=== PATIENT | female | born 1950 | race Caucasian/White ===

== ENCOUNTER 2017-12-31 07:54 | Inpatient (IN) | payer MEDICARE ==
[2017-12-28 12:22] LABS: INTERNATIONAL NORMALIZED RATIO 2.46 (0.93-1.1); PROTHROMBIN TIME 25.1 Seconds (9.6-11.5)
[2017-12-28 12:29] LABS: BASOPHILS # (AUTO) 0.05 x10^3/uL (0-0.1); BASOPHILS % (AUTO) 1 % (0-1); EOSINOPHILS # (AUTO) 0.16 x10^3/uL (0-0.4); EOSINOPHILS % (AUTO) 2 % (1-7); LYMPHOCYTES # (AUTO) 2.25 x10^3/uL (1-3.4); LYMPHOCYTES % (AUTO) 28 % (22-44); MD NO; MEAN CORPUSCULAR HEMOGLOBIN 29.5 pg (27.0-34.8); MEAN CORPUSCULAR HGB CONC 32.8 g/dL (32.4-35.8); MEAN CORPUSCULAR VOLUME 89.7 fL (80-100); MEAN PLATELET VOLUME 7.5 fL (7.4-10.4); MONOCYTES # (AUTO) 0.68 x10^3/uL (0.2-0.8); MONOCYTES % (AUTO) 8 % (2-9); NEUTROPHILS # (AUTO) 5.05 x10^3/uL (1.8-6.8); NEUTROPHILS % (AUTO) 62 % (42-75); PLATELET COUNT 280 x10^3/uL (130-400); RED BLOOD COUNT 4.15 x10^6/uL (3.82-5.3); RED CELL DISTRIBUTION WIDTH 16.2 % (9.6-15.2)
[2017-12-28 12:31] LABS: ALBUMIN 2.6 g/dL (3.4-5.0); ANION GAP 7 mmol/L (5-15); CALCIUM 8.6 mg/dL (8.5-10.1); CHLORIDE 104 mmol/L (98-107)
[2017-12-28 12:35] LABS: ALANINE AMINOTRANSFERASE 15 U/L (12-78); ALKALINE PHOSPHATASE 106 U/L (45-117); BILIRUBIN,TOTAL 0.2 mg/dL (0.2-1.0); TOTAL PROTEIN 7.1 g/dL (6.4-8.2)
[~2017-12-31] VITALS: Ht 170.2 cm; Wt 99.6 kg
[~2017-12-31 07:54] MED LIST: CYAN25003 PO; ENOX150S5 SQ; FURO-92 PO; HYDR-3241 PO; IRON1TAB60 PO; MAGN250T9 PO; MAGN300C PO; METF10002 PO; METF500T4 PO; MV-M1TAB16 PO; OMEG1CAP6 PO; OMEP-110 PO; POTA10TA31 PO; POTA20TA91 PO; SIMV40TA3 PO; WARF2.5T73 PO; WARF7.5T46 PO
[2017-12-31] MEDS ORDERED: HEPARIN 1,000 UNITS/ML, 10ML ONE (08:09)
[2017-12-31] MEDS ORDERED: ISOSULFAN BLUE 10 MG/ML, 5ML IV ONE (08:24)
[2017-12-31 09:07] VITALS: BP 121/81
[2017-12-31] MEDS: LACTATED RINGERS 1,000 ML IV SCH ×2 (09:35→11:03)
[2017-12-31 10:30] LABS: INTERNATIONAL NORMALIZED RATIO 1.23 (0.93-1.1); PROTHROMBIN TIME 12.7 Seconds (9.6-11.5)
[2017-12-31] MEDS ORDERED: MIDAZOLAM 1 MG/ML, 2ML ONE (10:48)
[2017-12-31] MEDS ORDERED: FENTANYL PF 250 MCG/5ML ONE ×2 (10:48→12:03)
[2017-12-31] MEDS ORDERED: ONDANSETRON ODT 8 MG PO ONE (11:00)
[2017-12-31] MEDS ORDERED: ACETAMINOPHEN 500 MG TABLET PO ONE (11:00)
[2017-12-31] MEDS ORDERED: OXYcodone IR 5MG TABLET PO ONE (11:00)
[2017-12-31] MEDS ORDERED: CEFAZOLIN 1,000 MG ONE (11:18)
[2017-12-31] MEDS ORDERED: PROPOFOL 10 MG/ML, 20ML ONE (11:18)
[2017-12-31] MEDS ORDERED: ROCURONIUM 10 MG/ML,10ML ONE (11:18)
[2017-12-31] MEDS ORDERED: EPHEDRINE 50 MG/ML, 1ML ONE (11:18)
[2017-12-31] MEDS ORDERED: DEXAMETHASONE 4 MG/ML, 5ML ONE (11:18)
[2017-12-31] MEDS ORDERED: NEOSTIGMINE 1 MG/ML, 10ML ONE (11:18)
[2017-12-31] MEDS ORDERED: GLYCOPYRROLATE 0.2MG/1ML, 5ML ONE (11:18)
[2017-12-31] MEDS ORDERED: HYDROmorphone 1 MG/ML, 1ML IV PRN (11:30)
[2017-12-31] MEDS ORDERED: MEPERIDINE/PF 25MG/0.5ML IVPush PRN (11:30)
[2017-12-31] MEDS ORDERED: PROMETHAZINE 25 MG/ML, 1ML IV PRN (11:30)
[2017-12-31] MEDS ORDERED: OXYcodone 5 MG/5 ML ORAL.SOL UDC PO PRN (11:30)
[2017-12-31] MEDS ORDERED: LABETALOL 5MG/ML, 20ML IV PRN (11:30)
[2017-12-31] MEDS ORDERED: HYDROmorphone 2 MG/ML, 1ML ONE ×3 (12:03→16:14)
[2017-12-31] MEDS ORDERED: FLU VACC QS2017-18 (36MOS+) UP/PF 0.5 ML IM-VACC ONE (14:30)
[2017-12-31] MEDS ORDERED: DIPHTHERIA-TETANUS ADULT 0.5ML IM-VACC ONE (14:30)
[2017-12-31] MEDS ORDERED: FLU VACCINE PER PHARMACY IM ONE (14:30)
[2017-12-31] MEDS ORDERED: MENING VAC A,C,Y,W-135 DIP/PF (MENACTRA AGES 2-55) 0.5 ML IM-VACC ONE (14:30)
[2017-12-31] MEDS ORDERED: PNEUMOC 13-VALENT VACC, 0.5 ML IM-VACC ONE (14:30)
[2017-12-31] MEDS ORDERED: HAEMOPH B POLY CONJ-TET TOX/PF 10 MCG/0.5 ML INJ IM-VACC ONE (14:30)
[2017-12-31] MEDS ORDERED: MENING VAC A,C,Y,W-135/PF 0.5 ML SQ-VACC ONE (15:00)
[2017-12-31] MEDS ORDERED: FENTANYL PF 100 MCG/2ML ONE ×2 (15:34→16:14)
[2017-12-31] MEDS ORDERED: ALBUMIN HUMAN 25% 50 ML IV ONE (17:30)
[2017-12-31] MEDS ORDERED: ALBUMIN HUMAN 25% 50 ML ONE (17:32)
[2017-12-31 18:04] LABS: ALANINE AMINOTRANSFERASE 210 U/L (12-78); ALBUMIN 2.2 g/dL (3.4-5.0); ANION GAP 15 mmol/L (5-15); CALCIUM 7.4 mg/dL (8.5-10.1); CHLORIDE 106 mmol/L (98-107); CREATININE 1.41 mg/dL (0.55-1.02)
[2017-12-31 18:06] LABS: ALKALINE PHOSPHATASE 91 U/L (45-117); BILIRUBIN,TOTAL 0.5 mg/dL (0.2-1.0); TOTAL PROTEIN 4.8 g/dL (6.4-8.2)
[2017-12-31] MEDS ORDERED: ALBUMIN HUMAN 25% 100 ML IV ONE (18:30)
[2017-12-31] MEDS ORDERED: KETOROLAC 30 MG/1 ML IVPush ONE (19:00)
[2017-12-31] MEDS ORDERED: LACTATED RINGERS 1,000 ML IVBOLUS ONE ×2 (19:30)
[2017-12-31] MEDS: FENTANYL PF 100 MCG/2ML IV PRN ×2 (19:45→19:55)
[2017-12-31] MEDS ORDERED: ACETAMINOPHEN 650 MG SUPP PR PRN (22:30)
[2017-12-31] MEDS ORDERED: DIPHENHYDRAMINE 50 MG/ML, 1ML IV PRN (22:30)
[2017-12-31] MEDS: FAMOTIDINE 20 MG/2 ML IV SCH (23:23)
[2017-12-31] MEDS: POTASSIUM CHLORIDE 20 MEQ in D5%-0.45% NACL 1,000 ML IV SCH (23:23)
[2017-12-31] MEDS: IV KETOROLAC 30 MG/ML, 1ML IV SCH (23:23)
[2018-01-01] MEDS: POTASSIUM CHLORIDE 20 MEQ in D5%-0.45% NACL 1,000 ML IV SCH ×2 (03:39→08:36)
[2018-01-01 04:00] VITALS: BP 101/51
[2018-01-01 04:54] LABS: MEAN CORPUSCULAR HEMOGLOBIN 29.9 pg (27.0-34.8); MEAN CORPUSCULAR HGB CONC 33.5 g/dL (32.4-35.8); MEAN CORPUSCULAR VOLUME 89.3 fL (80-100); MEAN PLATELET VOLUME 8.1 fL (7.4-10.4); PLATELET COUNT 200 x10^3/uL (130-400); RED BLOOD COUNT 2.83 x10^6/uL (3.82-5.3)
[2018-01-01 05:01] LABS: ALBUMIN 2.4 g/dL (3.4-5.0); ANION GAP 13 mmol/L (5-15); CALCIUM 7.3 mg/dL (8.5-10.1); CHLORIDE 106 mmol/L (98-107); CREATININE 1.95 mg/dL (0.55-1.02)
[2018-01-01 05:42] LABS: MD YES
[2018-01-01 05:44] LABS: BAND#(MANUAL) 5.22 x10^3/uL; BANDS%(MANUAL) 23 % (0-7); LYMPH#(MANUAL) 1.14 x10^3/uL (1-3.4); LYMPHS% (MANUAL) 5 % (22-44); METAMYELOCYTES# (MANUAL) 0.23 x10^3/uL (0-0); METAMYELOCYTES% (MANUAL) 1 % (0-1); MONOS#(MANUAL) 1.59 x10^3/uL (0.3-2.7); MONOS% (MANUAL) 7 % (2-9); SEG#(MANUAL) 14.53 x10^3/uL (1.8-6.8); SEGS% (MANUAL) 64 % (42-75)
[2018-01-01 05:45] LABS: <PLATELET ESTIMATE> ADEQUATE; <PLT MORPHOLOGY> NORMAL PLT MORPH; ANISOCYTOSIS 1+
[2018-01-01] MEDS: IV KETOROLAC 30 MG/ML, 1ML IV SCH ×3 (06:31→22:13)
[2018-01-01] MEDS ORDERED: SODIUM CHLORIDE 0.9% 1,000ML IVBOLUS ONE (08:30)
[2018-01-01] MEDS: SODIUM CHLORIDE 0.9% 1,000ML IVBOLUS PRN ×2 (09:36→16:51)
[2018-01-01] MEDS: SODIUM CHLORIDE 0.45% 1,000 ML IV SCH ×3 (09:37→22:40)
[2018-01-01] MEDS: FAMOTIDINE 20 MG/2 ML IV SCH (12:39)
[2018-01-01] MEDS: ALBUMIN HUMAN 5% 500 ML IV SCH ×2 (12:40→22:39)
[2018-01-01] MEDS ORDERED: HEPARIN 5,000 UNITS/ML, 1ML IV ONE (13:00)
[2018-01-01] MEDS ORDERED: HEPARIN 25,000 UNITS/500ML PMX 500 ML IV PRN (13:00)
[2018-01-01] MEDS ORDERED: ENOXAPARIN 30 MG/0.3 ML SQ SCH (16:00)
[2018-01-01] MEDS ORDERED: ENOXAPARIN 40 MG/0.4 ML SQ SCH (16:00)
[2018-01-01] MEDS: INSULIN LISPRO 100 UNITS/ML, PEN SQ-INSULIN SCH ×2 (16:51→20:55)
[2018-01-01] MEDS ORDERED: SODIUM CHLORIDE 0.9% 1,000ML IVBOLUS PRN (17:30)
[2018-01-01] MEDS ORDERED: FUROSEMIDE 20 MG/2 ML IV ONE (17:30)
[2018-01-02] VITALS (10 sets, daily range): BP systolic 117–156; BP diastolic 46–74
[2018-01-02] MEDS: SODIUM CHLORIDE 0.45% 1,000 ML IV SCH ×3 (05:46→14:43)
[2018-01-02] MEDS: IV KETOROLAC 30 MG/ML, 1ML IV SCH ×3 (05:47→21:47)
[2018-01-02 06:10] LABS: ANION GAP 9 mmol/L (5-15); CALCIUM 7.7 mg/dL (8.5-10.1); CHLORIDE 109 mmol/L (98-107); CREATININE 1.73 mg/dL (0.55-1.02)
[2018-01-02] MEDS: INSULIN LISPRO 100 UNITS/ML, PEN SQ-INSULIN SCH ×4 (06:38→20:19)
[2018-01-02 06:55] LABS: MEAN CORPUSCULAR HGB CONC 33.7 g/dL (32.4-35.8); MEAN PLATELET VOLUME 8.7 fL (7.4-10.4); PLATELET COUNT 195 x10^3/uL (130-400); RED BLOOD COUNT 1.93 x10^6/uL (3.82-5.3)
[2018-01-02 07:15] LABS: MD YES
[2018-01-02 07:16] LABS: BAND#(MANUAL) 3.14 x10^3/uL; BANDS%(MANUAL) 16 % (0-7); EOS#(MANUAL) 0.39 x10^3/uL (0.0-0.4); EOS% (MANUAL) 2 % (1-7); LYMPH#(MANUAL) 0.98 x10^3/uL (1-3.4); LYMPHS% (MANUAL) 5 % (22-44); MONOS#(MANUAL) 0.78 x10^3/uL (0.3-2.7); MONOS% (MANUAL) 4 % (2-9); NRBC % (MANUAL) 1 % (0-1); SEG#(MANUAL) 14.31 x10^3/uL (1.8-6.8); SEGS% (MANUAL) 73 % (42-75)
[2018-01-02 07:17] LABS: ANISOCYTOSIS 1+; BASOPHILLIC STIPPLING 1+
[2018-01-02 07:18] LABS: <PLATELET ESTIMATE> ADEQUATE; <PLT MORPHOLOGY> NORMAL PLT MORPH
[2018-01-02] MEDS: FAMOTIDINE 20 MG/2 ML IV SCH (08:09)
[2018-01-02] MEDS: ALBUMIN HUMAN 5% 500 ML IV SCH ×2 (08:38→20:19)
[2018-01-02 10:48] LABS: MEAN CORPUSCULAR HEMOGLOBIN 31.4 pg (27.0-34.8); MEAN CORPUSCULAR VOLUME 89.8 fL (80-100); MEAN PLATELET VOLUME 8.8 fL (7.4-10.4); PLATELET COUNT 198 x10^3/uL (130-400); RED BLOOD COUNT 1.77 x10^6/uL (3.82-5.3); RED CELL DISTRIBUTION WIDTH 16.4 % (9.6-15.2)
[2018-01-02 11:01] LABS: MD YES
[2018-01-02 11:03] LABS: BAND#(MANUAL) 2.27 x10^3/uL; BANDS%(MANUAL) 12 % (0-7); LYMPH#(MANUAL) 1.13 x10^3/uL (1-3.4); LYMPHS% (MANUAL) 6 % (22-44); MONOS#(MANUAL) 0.95 x10^3/uL (0.3-2.7); MONOS% (MANUAL) 5 % (2-9); NRBC % (MANUAL) 1 % (0-1)
[2018-01-02 11:04] LABS: <PLATELET ESTIMATE> ADEQUATE; <PLT MORPHOLOGY> NORMAL PLT MORPH; ANISOCYTOSIS 1+; EOS#(MANUAL) 0.76 x10^3/uL (0.0-0.4); EOS% (MANUAL) 4 % (1-7); SEGS% (MANUAL) 73 % (42-75)
[2018-01-02 11:05] LABS: BASOPHILLIC STIPPLING 1+
[2018-01-02] MEDS ORDERED: HEPARIN 25,000 UNITS/500ML PMX 500 ML IV PRN (13:00)
[2018-01-02] MEDS ORDERED: FUROSEMIDE 20 MG/2 ML ONE (19:31)
[2018-01-02] MEDS: FUROSEMIDE 20 MG/2 ML IV SCH (19:40)
[2018-01-03] MEDS: SODIUM CHLORIDE 0.45% 1,000 ML IV SCH ×3 (00:48→21:55)
[2018-01-03] MEDS: ALBUMIN HUMAN 5% 500 ML IV SCH ×2 (02:37→15:28)
[2018-01-03] MEDS: MORPHINE SULFATE 4 MG/ML, 1ML IVPush PRN ×2 (02:50→14:47)
[2018-01-03 04:00] VITALS: BP 137/59
[2018-01-03 05:21] LABS: ALANINE AMINOTRANSFERASE 40 U/L (12-78); ALBUMIN 2.7 g/dL (3.4-5.0); ANION GAP 9 mmol/L (5-15); CALCIUM 7.9 mg/dL (8.5-10.1); CHLORIDE 106 mmol/L (98-107)
[2018-01-03 05:23] LABS: ALKALINE PHOSPHATASE 76 U/L (45-117); BILIRUBIN,TOTAL 0.6 mg/dL (0.2-1.0); TOTAL PROTEIN 5.2 g/dL (6.4-8.2)
[2018-01-03 05:25] LABS: MEAN CORPUSCULAR HEMOGLOBIN 29.9 pg (27.0-34.8); MEAN CORPUSCULAR HGB CONC 33.9 g/dL (32.4-35.8); MEAN CORPUSCULAR VOLUME 88.1 fL (80-100); MEAN PLATELET VOLUME 8.4 fL (7.4-10.4); PLATELET COUNT 194 x10^3/uL (130-400); RED BLOOD COUNT 2.26 x10^6/uL (3.82-5.3); RED CELL DISTRIBUTION WIDTH 15.6 % (9.6-15.2)
[2018-01-03 05:47] LABS: MD YES
[2018-01-03 05:48] LABS: BAND#(MANUAL) 1.02 x10^3/uL; BANDS%(MANUAL) 6 % (0-7); EOS#(MANUAL) 0.51 x10^3/uL (0.0-0.4); EOS% (MANUAL) 3 % (1-7); LYMPHS% (MANUAL) 10 % (22-44); MONOS#(MANUAL) 1.19 x10^3/uL (0.3-2.7); MONOS% (MANUAL) 7 % (2-9); NRBC % (MANUAL) 4 % (0-1); SEG#(MANUAL) 12.58 x10^3/uL (1.8-6.8); SEGS% (MANUAL) 74 % (42-75)
[2018-01-03 05:49] LABS: ANISOCYTOSIS 1+; POLYCHROMASIA 1+
[2018-01-03 05:51] LABS: <PLATELET ESTIMATE> ADEQUATE; <PLT MORPHOLOGY> NORMAL PLT MORPH
[2018-01-03] MEDS: IV KETOROLAC 30 MG/ML, 1ML IV SCH ×3 (06:30→21:45)
[2018-01-03] MEDS: INSULIN LISPRO 100 UNITS/ML, PEN SQ-INSULIN SCH ×4 (06:51→21:00)
[2018-01-03] MEDS: FAMOTIDINE 20 MG/2 ML IV SCH ×2 (09:59→21:45)
[2018-01-03] MEDS: FUROSEMIDE 20 MG/2 ML IV SCH ×2 (09:59→21:54)
[2018-01-03 12:15] VITALS: BP 155/84
[2018-01-03] MEDS ORDERED: HEPARIN 25,000 UNITS/500ML PMX 500 ML IV PRN (13:00)
[2018-01-03] MEDS: HEPARIN 25,000 UNITS/500ML PMX 500 ML IV PRN (14:59)
[2018-01-03 19:50] VITALS: BP 158/83
[2018-01-04] MEDS: ALBUMIN HUMAN 5% 500 ML IV SCH (03:57)
[2018-01-04] MEDS: HEPARIN 25,000 UNITS/500ML PMX 500 ML IV PRN (04:05)
[2018-01-04 04:16] VITALS: BP 156/77
[2018-01-04 05:53] LABS: RED BLOOD COUNT 2.58 x10^6/uL (3.82-5.3)
[2018-01-04 05:54] LABS: MEAN CORPUSCULAR HEMOGLOBIN 29.9 pg (27.0-34.8); MEAN CORPUSCULAR HGB CONC 33.8 g/dL (32.4-35.8); MEAN CORPUSCULAR VOLUME 88.7 fL (80-100); MEAN PLATELET VOLUME 8.6 fL (7.4-10.4); PLATELET COUNT 256 x10^3/uL (130-400); RED CELL DISTRIBUTION WIDTH 15.8 % (9.6-15.2)
[2018-01-04 06:04] LABS: CHLORIDE 107 mmol/L (98-107)
[2018-01-04] MEDS: IV KETOROLAC 30 MG/ML, 1ML IV SCH ×3 (06:15→22:22)
[2018-01-04 06:16] LABS: ALANINE AMINOTRANSFERASE 29 U/L (12-78); ALBUMIN 2.6 g/dL (3.4-5.0); ALKALINE PHOSPHATASE 75 U/L (45-117); ANION GAP 11 mmol/L (5-15); BILIRUBIN,TOTAL 0.9 mg/dL (0.2-1.0); CALCIUM 8.9 mg/dL (8.5-10.1); CREATININE 0.77 mg/dL (0.55-1.02); TOTAL PROTEIN 5.5 g/dL (6.4-8.2)
[2018-01-04 06:19] LABS: MD YES
[2018-01-04 06:21] LABS: BAND#(MANUAL) 0.33 x10^3/uL; BANDS%(MANUAL) 2 % (0-7); EOS#(MANUAL) 0.33 x10^3/uL (0.0-0.4); EOS% (MANUAL) 2 % (1-7); LYMPH#(MANUAL) 0.66 x10^3/uL (1-3.4); LYMPHS% (MANUAL) 4 % (22-44); MONOS#(MANUAL) 1.16 x10^3/uL (0.3-2.7); MONOS% (MANUAL) 7 % (2-9); SEG#(MANUAL) 14.11 x10^3/uL (1.8-6.8); SEGS% (MANUAL) 85 % (42-75)
[2018-01-04 06:22] LABS: NRBC % (MANUAL) 1 % (0-1)
[2018-01-04 06:23] LABS: <PLATELET ESTIMATE> ADEQUATE; <PLT MORPHOLOGY> NORMAL PLT MORPH; ANISOCYTOSIS 1+; POLYCHROMASIA 1+
[2018-01-04 07:30] VITALS: BP 136/73
[2018-01-04] MEDS: INSULIN LISPRO 100 UNITS/ML, PEN SQ-INSULIN SCH ×4 (08:02→20:08)
[2018-01-04] MEDS: SODIUM CHLORIDE 0.45% 1,000 ML IV SCH ×2 (08:31→16:35)
[2018-01-04] MEDS: FAMOTIDINE 20 MG/2 ML IV SCH ×2 (08:31→20:03)
[2018-01-04] MEDS ORDERED: POTASSIUM CHLORIDE 40 MEQ in SODIUM CHLORIDE 0.9% 500 ML IV ONE (11:00)
[2018-01-04 12:25] VITALS: BP 136/78
[2018-01-04] MEDS ORDERED: HEPARIN 25,000 UNITS/500ML PMX 500 ML IV PRN (13:00)
[2018-01-04 14:59] VITALS: BP 132/80
[2018-01-04] MEDS ORDERED: HEPARIN 5,000 UNITS/ML, 1ML IVPush ONE ×2 (16:30→22:30)
[2018-01-04 18:49] VITALS: BP 134/81
[2018-01-04] MEDS ORDERED: HEPARIN 5,000 UNITS/ML, 1ML ONE (21:59)
[2018-01-05 00:04] VITALS: BP 145/78
[2018-01-05] MEDS: SODIUM CHLORIDE 0.45% 1,000 ML IV SCH ×3 (02:57→22:41)
[2018-01-05] MEDS: IV KETOROLAC 30 MG/ML, 1ML IV SCH ×2 (05:36→15:11)
[2018-01-05 06:13] LABS: ALBUMIN 2.4 g/dL (3.4-5.0); ANION GAP 8 mmol/L (5-15); CALCIUM 8.3 mg/dL (8.5-10.1); CHLORIDE 106 mmol/L (98-107); MEAN CORPUSCULAR HEMOGLOBIN 29.1 pg (27.0-34.8); MEAN CORPUSCULAR HGB CONC 33.4 g/dL (32.4-35.8); MEAN CORPUSCULAR VOLUME 87.2 fL (80-100); MEAN PLATELET VOLUME 8.4 fL (7.4-10.4); PLATELET COUNT 311 x10^3/uL (130-400); RED BLOOD COUNT 2.73 x10^6/uL (3.82-5.3); RED CELL DISTRIBUTION WIDTH 15.8 % (9.6-15.2)
[2018-01-05 06:18] LABS: ALANINE AMINOTRANSFERASE 23 U/L (12-78); ALKALINE PHOSPHATASE 102 U/L (45-117); BILIRUBIN,TOTAL 0.8 mg/dL (0.2-1.0); CREATININE 0.76 mg/dL (0.55-1.02); TOTAL PROTEIN 5.4 g/dL (6.4-8.2)
[2018-01-05 06:53] VITALS: BP 129/79
[2018-01-05 06:54] LABS: MD YES
[2018-01-05 06:59] LABS: BAND#(MANUAL) 1.08 x10^3/uL; BANDS%(MANUAL) 7 % (0-7); EOS#(MANUAL) 1.08 x10^3/uL (0.0-0.4); EOS% (MANUAL) 7 % (1-7); LYMPH#(MANUAL) 1.85 x10^3/uL (1-3.4); LYMPHS% (MANUAL) 12 % (22-44); MONOS#(MANUAL) 2.16 x10^3/uL (0.3-2.7); MONOS% (MANUAL) 14 % (2-9); NRBC % (MANUAL) 4 % (0-1); SEG#(MANUAL) 9.24 x10^3/uL (1.8-6.8); SEGS% (MANUAL) 60 % (42-75)
[2018-01-05 07:00] LABS: <PLATELET ESTIMATE> ADEQUATE; ANISOCYTOSIS 1+; POLYCHROMASIA 1+
[2018-01-05] MEDS: INSULIN LISPRO 100 UNITS/ML, PEN SQ-INSULIN SCH ×4 (07:00→20:19)
[2018-01-05 07:01] LABS: <PLT MORPHOLOGY> NORMAL PLT MORPH
[2018-01-05] MEDS: FAMOTIDINE 20 MG/2 ML IV SCH ×2 (07:38→20:12)
[2018-01-05] MEDS: POTASSIUM CHLORIDE 20 MEQ TAB.ER.PRT PO SCH ×2 (09:21→20:11)
[2018-01-05] MEDS ORDERED: HEPARIN 25,000 UNITS/500ML PMX 500 ML IV PRN (13:00)
[2018-01-05 13:07] VITALS: BP 144/76
[2018-01-05 15:14] LABS: INTERNATIONAL NORMALIZED RATIO 1.01 (0.93-1.1); PROTHROMBIN TIME 10.5 Seconds (9.6-11.5)
[2018-01-05] MEDS: HEPARIN 25,000 UNITS/500ML PMX 500 ML IV PRN (17:42)
[2018-01-05] MEDS ORDERED: WARFARIN 5 MG TABLET PO-COUM SCH (18:00)
[2018-01-05 18:40] VITALS: BP 123/72
[2018-01-06 01:03] VITALS: BP 115/71
[2018-01-06] MEDS ORDERED: ACETAMINOPHEN 325 MG TABLET PO PRN (01:30)
[2018-01-06 05:50] LABS: MEAN CORPUSCULAR HEMOGLOBIN 28.8 pg (27.0-34.8); MEAN CORPUSCULAR HGB CONC 32.8 g/dL (32.4-35.8); MEAN CORPUSCULAR VOLUME 87.7 fL (80-100); MEAN PLATELET VOLUME 8.5 fL (7.4-10.4); PLATELET COUNT 351 x10^3/uL (130-400); RED BLOOD COUNT 2.78 x10^6/uL (3.82-5.3); RED CELL DISTRIBUTION WIDTH 15.5 % (9.6-15.2)
[2018-01-06 05:52] LABS: ALBUMIN 2.1 g/dL (3.4-5.0); ANION GAP 8 mmol/L (5-15); CALCIUM 7.7 mg/dL (8.5-10.1); CHLORIDE 107 mmol/L (98-107)
[2018-01-06 05:56] LABS: ALANINE AMINOTRANSFERASE 23 U/L (12-78); ALKALINE PHOSPHATASE 148 U/L (45-117); BILIRUBIN,TOTAL 0.7 mg/dL (0.2-1.0); CREATININE 0.82 mg/dL (0.55-1.02); TOTAL PROTEIN 5.2 g/dL (6.4-8.2)
[2018-01-06 06:12] LABS: INTERNATIONAL NORMALIZED RATIO 1.08 (0.93-1.1); PROTHROMBIN TIME 11.2 Seconds (9.6-11.5)
[2018-01-06 06:13] LABS: MD YES
[2018-01-06 06:15] LABS: BAND#(MANUAL) 0.34 x10^3/uL; BANDS%(MANUAL) 2 % (0-7); EOS#(MANUAL) 0.85 x10^3/uL (0.0-0.4); EOS% (MANUAL) 5 % (1-7); LYMPHS% (MANUAL) 13 % (22-44); MONOS#(MANUAL) 1.86 x10^3/uL (0.3-2.7); MONOS% (MANUAL) 11 % (2-9); NRBC % (MANUAL) 2 % (0-1); SEG#(MANUAL) 11.66 x10^3/uL (1.8-6.8); SEGS% (MANUAL) 69 % (42-75)
[2018-01-06 06:16] LABS: ANISOCYTOSIS 1+; POLYCHROMASIA 1+
[2018-01-06 06:17] LABS: <PLATELET ESTIMATE> ADEQUATE; <PLT MORPHOLOGY> NORMAL PLT MORPH; TARGET CELLS 1+
[2018-01-06] MEDS: INSULIN LISPRO 100 UNITS/ML, PEN SQ-INSULIN SCH ×4 (07:00→20:31)
[2018-01-06 08:14] VITALS: BP 123/65
[2018-01-06] MEDS: HEPARIN 25,000 UNITS/500ML PMX 500 ML IV PRN ×2 (08:19→21:26)
[2018-01-06] MEDS: SODIUM CHLORIDE 0.45% 1,000 ML IV SCH ×2 (08:20→18:14)
[2018-01-06] MEDS: POTASSIUM CHLORIDE 20 MEQ TAB.ER.PRT PO SCH ×2 (08:28→20:29)
[2018-01-06] MEDS: FAMOTIDINE 20 MG/2 ML IV SCH ×2 (08:28→20:29)
[2018-01-06] MEDS: ACETAMINOPHEN 325 MG TABLET PO PRN ×2 (08:35→21:29)
[2018-01-06 11:49] VITALS: BP 148/75
[2018-01-06 14:45] LABS: MICROSCOPIC AUTO
[2018-01-06 14:47] LABS: CULTURE INDICATED? YES
[2018-01-06 14:59] VITALS: BP 161/89
[2018-01-06] MEDS ORDERED: WARFARIN 5 MG TABLET PO-COUM SCH (18:00)
[2018-01-06] MEDS: PIPERACILLIN/TAZO/PMX 3.375GM 50 ML IV SCH ×2 (18:10→23:34)
[2018-01-06 19:04] VITALS: BP 109/72
[2018-01-06] MEDS ORDERED: IBUPROFEN 200 MG TABLET PO PRN (22:00)
[2018-01-07 00:31] VITALS: BP_SYST 91; BP_DIAS 57; BP_DIAS 60
[2018-01-07] MEDS ORDERED: IBUPROFEN 600 MG TABLET ONE (01:07)
[2018-01-07 04:32] LABS: ALBUMIN 1.9 g/dL (3.4-5.0); ANION GAP 10 mmol/L (5-15); CALCIUM 8.1 mg/dL (8.5-10.1); CHLORIDE 103 mmol/L (98-107)
[2018-01-07 04:33] LABS: INTERNATIONAL NORMALIZED RATIO 1.6 (0.93-1.1); PROTHROMBIN TIME 16.5 Seconds (9.6-11.5)
[2018-01-07 04:35] LABS: MEAN CORPUSCULAR HGB CONC 33.1 g/dL (32.4-35.8); MEAN CORPUSCULAR VOLUME 87.7 fL (80-100); MEAN PLATELET VOLUME 9.1 fL (7.4-10.4); PLATELET COUNT 433 x10^3/uL (130-400); RED BLOOD COUNT 2.75 x10^6/uL (3.82-5.3); RED CELL DISTRIBUTION WIDTH 15.7 % (9.6-15.2)
[2018-01-07 04:36] LABS: ALANINE AMINOTRANSFERASE 31 U/L (12-78); ALKALINE PHOSPHATASE 191 U/L (45-117); BILIRUBIN,TOTAL 0.7 mg/dL (0.2-1.0); CREATININE 1.06 mg/dL (0.55-1.02); TOTAL PROTEIN 5.1 g/dL (6.4-8.2)
[2018-01-07] MEDS: PIPERACILLIN/TAZO/PMX 3.375GM 50 ML IV SCH ×4 (05:11→22:55)
[2018-01-07 05:15] LABS: MD YES
[2018-01-07] MEDS: SODIUM CHLORIDE 0.45% 1,000 ML IV SCH ×2 (05:15→16:31)
[2018-01-07 05:31] LABS: BASOS#(MANUAL) 0.28 x10^3/uL (0-0.1); BASOS% (MANUAL) 1 % (0-1); EOS#(MANUAL) 1.93 x10^3/uL (0.0-0.4); EOS% (MANUAL) 7 % (1-7); LYMPH#(MANUAL) 2.76 x10^3/uL (1-3.4); LYMPHS% (MANUAL) 10 % (22-44); MONOS#(MANUAL) 2.48 x10^3/uL (0.3-2.7); MONOS% (MANUAL) 9 % (2-9); SEG#(MANUAL) 20.15 x10^3/uL (1.8-6.8); SEGS% (MANUAL) 73 % (42-75)
[2018-01-07 05:32] LABS: <PLATELET ESTIMATE> ADEQUATE; <PLT MORPHOLOGY> NORMAL PLT MORPH; ANISOCYTOSIS 1+; POLYCHROMASIA 1+; TARGET CELLS 1+
[2018-01-07] MEDS: INSULIN LISPRO 100 UNITS/ML, PEN SQ-INSULIN SCH ×4 (07:00→21:00)
[2018-01-07 07:15] VITALS: BP 124/67
[2018-01-07] MEDS: FAMOTIDINE 20 MG/2 ML IV SCH ×2 (07:44→21:37)
[2018-01-07] MEDS: POTASSIUM CHLORIDE 20 MEQ TAB.ER.PRT PO SCH ×2 (07:45→21:37)
[2018-01-07] MEDS: HEPARIN 25,000 UNITS/500ML PMX 500 ML IV PRN (09:23)
[2018-01-07 12:57] VITALS: BP 106/69
[2018-01-07 17:34] LABS: CLOSTRIDIUM DIFFICILE ANTIGEN POSITIVE; CLOSTRIDIUM DIFFICILE TOXIN NEGATIVE (Negative)
[2018-01-07] MEDS ORDERED: WARFARIN 7.5 MG TABLET PO-COUM ONE (18:00)
[2018-01-07 19:08] VITALS: BP 118/72
[2018-01-07] MEDS: HYDROcodone/APAP 5/325 TABLET PO PRN (21:37)
[2018-01-08] VITALS (10 sets, daily range): BP systolic 108–132; BP diastolic 59–77
[2018-01-08] MEDS: SODIUM CHLORIDE 0.45% 1,000 ML IV SCH ×3 (03:08→23:44)
[2018-01-08] MEDS: HYDROcodone/APAP 5/325 TABLET PO PRN ×3 (03:25→16:33)
[2018-01-08 04:53] LABS: MEAN CORPUSCULAR HEMOGLOBIN 28.8 pg (27.0-34.8); MEAN CORPUSCULAR HGB CONC 32.4 g/dL (32.4-35.8); MEAN CORPUSCULAR VOLUME 88.8 fL (80-100); MEAN PLATELET VOLUME 8.8 fL (7.4-10.4); PLATELET COUNT 443 x10^3/uL (130-400); RED BLOOD COUNT 2.41 x10^6/uL (3.82-5.3); RED CELL DISTRIBUTION WIDTH 16.1 % (9.6-15.2)
[2018-01-08 04:57] LABS: INTERNATIONAL NORMALIZED RATIO 2.09 (0.93-1.1); PROTHROMBIN TIME 21.4 Seconds (9.6-11.5)
[2018-01-08] MEDS: PIPERACILLIN/TAZO/PMX 3.375GM 50 ML IV SCH ×3 (05:05→17:44)
[2018-01-08 05:28] LABS: BASOPHILS % (AUTO) 0 % (0-1); EOSINOPHILS # (AUTO) 1.35 x10^3/uL (0-0.4); EOSINOPHILS % (AUTO) 8 % (1-7); LYMPHOCYTES # (AUTO) 1.42 x10^3/uL (1-3.4); LYMPHOCYTES % (AUTO) 8 % (22-44); MD SCAN; MONOCYTES # (AUTO) 1.57 x10^3/uL (0.2-0.8); MONOCYTES % (AUTO) 9 % (2-9); NEUTROPHILS # (AUTO) 13.24 x10^3/uL (1.8-6.8); NEUTROPHILS % (AUTO) 75 % (42-75)
[2018-01-08 07:24] LABS: BASOPHILS # (AUTO) 0.02 x10^3/uL (0-0.1); BASOPHILS % (AUTO) 0 % (0-1); EOSINOPHILS # (AUTO) 1.27 x10^3/uL (0-0.4); EOSINOPHILS % (AUTO) 8 % (1-7); LYMPHOCYTES # (AUTO) 1.53 x10^3/uL (1-3.4); LYMPHOCYTES % (AUTO) 9 % (22-44); MD NO; MEAN CORPUSCULAR HEMOGLOBIN 28.9 pg (27.0-34.8); MEAN CORPUSCULAR HGB CONC 32.8 g/dL (32.4-35.8); MEAN PLATELET VOLUME 8.7 fL (7.4-10.4); MONOCYTES # (AUTO) 1.66 x10^3/uL (0.2-0.8); MONOCYTES % (AUTO) 10 % (2-9); NEUTROPHILS # (AUTO) 12.61 x10^3/uL (1.8-6.8); NEUTROPHILS % (AUTO) 74 % (42-75); PLATELET COUNT 437 x10^3/uL (130-400); RED BLOOD COUNT 2.35 x10^6/uL (3.82-5.3); RED CELL DISTRIBUTION WIDTH 16.2 % (9.6-15.2)
[2018-01-08] MEDS: INSULIN LISPRO 100 UNITS/ML, PEN SQ-INSULIN SCH ×4 (07:37→21:00)
[2018-01-08] MEDS ORDERED: ACETAMINOPHEN 325 MG TABLET PO SCH (08:00)
[2018-01-08] MEDS ORDERED: DIPHENHYDRAMINE 25 MG CAPSULE PO SCH (08:00)
[2018-01-08] MEDS: FAMOTIDINE 20 MG/2 ML IV SCH ×2 (10:17→21:04)
[2018-01-08] MEDS: POTASSIUM CHLORIDE 20 MEQ TAB.ER.PRT PO SCH ×2 (10:18→21:04)
[2018-01-08] MEDS ORDERED: WARFARIN 5 MG TABLET PO-COUM ONE (18:00)
[2018-01-08] MEDS: IBUPROFEN 200 MG TABLET PO PRN (21:17)
[2018-01-09 01:16] VITALS: BP 127/72
[2018-01-09 04:48] LABS: MEAN CORPUSCULAR HEMOGLOBIN 29.1 pg (27.0-34.8); MEAN CORPUSCULAR HGB CONC 33.1 g/dL (32.4-35.8); MEAN CORPUSCULAR VOLUME 88.1 fL (80-100); MEAN PLATELET VOLUME 8.5 fL (7.4-10.4); PLATELET COUNT 505 x10^3/uL (130-400); RED BLOOD COUNT 3.16 x10^6/uL (3.82-5.3); RED CELL DISTRIBUTION WIDTH 15.4 % (9.6-15.2)
[2018-01-09 04:51] LABS: INTERNATIONAL NORMALIZED RATIO 2.43 (0.93-1.1); PROTHROMBIN TIME 24.8 Seconds (9.6-11.5)
[2018-01-09 04:53] LABS: ALBUMIN 1.7 g/dL (3.4-5.0); ANION GAP 7 mmol/L (5-15); CALCIUM 8.3 mg/dL (8.5-10.1); CHLORIDE 108 mmol/L (98-107)
[2018-01-09 04:57] LABS: ALANINE AMINOTRANSFERASE 17 U/L (12-78); ALKALINE PHOSPHATASE 242 U/L (45-117); BILIRUBIN,TOTAL 0.5 mg/dL (0.2-1.0); CREATININE 0.82 mg/dL (0.55-1.02); TOTAL PROTEIN 5.2 g/dL (6.4-8.2)
[2018-01-09 05:46] LABS: MD YES
[2018-01-09 05:47] LABS: ANISOCYTOSIS 1+; BAND#(MANUAL) 0.39 x10^3/uL; BANDS%(MANUAL) 2 % (0-7); EOS#(MANUAL) 0.79 x10^3/uL (0.0-0.4); EOS% (MANUAL) 4 % (1-7); LYMPH#(MANUAL) 1.97 x10^3/uL (1-3.4); LYMPHS% (MANUAL) 10 % (22-44); MONOS#(MANUAL) 0.99 x10^3/uL (0.3-2.7); MONOS% (MANUAL) 5 % (2-9); NRBC % (MANUAL) 2 % (0-1); POLYCHROMASIA 1+; SEG#(MANUAL) 15.56 x10^3/uL (1.8-6.8); SEGS% (MANUAL) 79 % (42-75)
[2018-01-09 05:48] LABS: HYPOCHROMIA 1+; TARGET CELLS 1+
[2018-01-09 05:49] LABS: <PLATELET ESTIMATE> INCREASED; <PLT MORPHOLOGY> NORMAL PLT MORPH
[2018-01-09] MEDS: INSULIN LISPRO 100 UNITS/ML, PEN SQ-INSULIN SCH ×4 (07:00→21:00)
[2018-01-09 08:26] VITALS: BP 124/79
[2018-01-09] MEDS: FAMOTIDINE 20 MG/2 ML IV SCH ×2 (10:05→21:11)
[2018-01-09] MEDS: POTASSIUM CHLORIDE 20 MEQ TAB.ER.PRT PO SCH ×2 (10:05→21:10)
[2018-01-09] MEDS: SODIUM CHLORIDE 0.45% 1,000 ML IV SCH ×2 (10:05→21:11)
[2018-01-09] MEDS: HYDROcodone/APAP 5/325 TABLET PO PRN ×2 (11:56→21:41)
[2018-01-09 13:25] VITALS: BP 151/78
[2018-01-09] MEDS: WARFARIN 5 MG TABLET PO-COUM SCH (17:15)
[2018-01-09] MEDS: IBUPROFEN 200 MG TABLET PO PRN (17:16)
[2018-01-09 19:04] VITALS: BP 130/73
[2018-01-09] MEDS: CIPROFLOXACIN 500 MG TABLET PO SCH (21:11)
[2018-01-10 00:20] VITALS: BP 118/70
[2018-01-10 04:54] LABS: INTERNATIONAL NORMALIZED RATIO 2.38 (0.93-1.1); PROTHROMBIN TIME 24.3 Seconds (9.6-11.5)
[2018-01-10 05:00] LABS: ALBUMIN 1.8 g/dL (3.4-5.0); ANION GAP 6 mmol/L (5-15); CALCIUM 8.5 mg/dL (8.5-10.1); CHLORIDE 106 mmol/L (98-107)
[2018-01-10 05:06] LABS: ALANINE AMINOTRANSFERASE 18 U/L (12-78); ALKALINE PHOSPHATASE 279 U/L (45-117); BILIRUBIN,TOTAL 0.5 mg/dL (0.2-1.0); CREATININE 0.77 mg/dL (0.55-1.02); TOTAL PROTEIN 5.6 g/dL (6.4-8.2)
[2018-01-10 05:07] LABS: MEAN CORPUSCULAR HEMOGLOBIN 29.7 pg (27.0-34.8); MEAN CORPUSCULAR VOLUME 90.1 fL (80-100); MEAN PLATELET VOLUME 8.3 fL (7.4-10.4); PLATELET COUNT 619 x10^3/uL (130-400); RED BLOOD COUNT 3.27 x10^6/uL (3.82-5.3); RED CELL DISTRIBUTION WIDTH 15.8 % (9.6-15.2)
[2018-01-10 05:37] LABS: MD YES
[2018-01-10 05:38] LABS: ANISOCYTOSIS 1+; BAND#(MANUAL) 0.34 x10^3/uL; BANDS%(MANUAL) 2 % (0-7); EOS#(MANUAL) 1.34 x10^3/uL (0.0-0.4); EOS% (MANUAL) 8 % (1-7); LYMPH#(MANUAL) 1.51 x10^3/uL (1-3.4); LYMPHS% (MANUAL) 9 % (22-44); MONOS#(MANUAL) 1.34 x10^3/uL (0.3-2.7); MONOS% (MANUAL) 8 % (2-9); SEG#(MANUAL) 12.26 x10^3/uL (1.8-6.8); SEGS% (MANUAL) 73 % (42-75)
[2018-01-10 05:39] LABS: HYPOCHROMIA 1+; POLYCHROMASIA 1+; TARGET CELLS 1+
[2018-01-10 05:40] LABS: <PLATELET ESTIMATE> INCREASED; <PLT MORPHOLOGY> NORMAL PLT MORPH
[2018-01-10 06:50] VITALS: BP 150/83
[2018-01-10] MEDS: INSULIN LISPRO 100 UNITS/ML, PEN SQ-INSULIN SCH ×4 (07:00→21:00)
[2018-01-10] MEDS: SODIUM CHLORIDE 0.45% 1,000 ML IV SCH ×2 (07:55→16:05)
[2018-01-10] MEDS: CIPROFLOXACIN 500 MG TABLET PO SCH ×2 (09:44→19:42)
[2018-01-10] MEDS: FAMOTIDINE 20 MG/2 ML IV SCH (09:44)
[2018-01-10] MEDS: POTASSIUM CHLORIDE 20 MEQ TAB.ER.PRT PO SCH ×2 (09:45→19:41)
[2018-01-10] MEDS: VANCOMYCIN 50 MG/ML ORAL SUSP PO SCH ×3 (10:27→21:19)
[2018-01-10] MEDS: HYDROcodone/APAP 5/325 TABLET PO PRN ×2 (11:28→19:41)
[2018-01-10 12:23] VITALS: BP 129/77
[2018-01-10] MEDS: ACETAMINOPHEN 325 MG TABLET PO PRN (17:47)
[2018-01-10] MEDS: WARFARIN 5 MG TABLET PO-COUM SCH (17:47)
[2018-01-10 18:58] VITALS: BP 122/74
[2018-01-10] MEDS: FAMOTIDINE 20 MG TABLET PO SCH (19:42)
[2018-01-10] MEDS: IBUPROFEN 200 MG TABLET PO PRN (21:26)
[2018-01-11] MEDS: VANCOMYCIN 50 MG/ML ORAL SUSP PO SCH ×4 (03:32→21:26)
[2018-01-11] MEDS: SODIUM CHLORIDE 0.45% 1,000 ML IV SCH ×2 (03:33→15:10)
[2018-01-11 03:39] VITALS: BP 101/68
[2018-01-11 05:06] LABS: INTERNATIONAL NORMALIZED RATIO 2.53 (0.93-1.1); PROTHROMBIN TIME 25.8 Seconds (9.6-11.5)
[2018-01-11 05:10] LABS: MEAN CORPUSCULAR HEMOGLOBIN 28.9 pg (27.0-34.8); MEAN CORPUSCULAR HGB CONC 32.4 g/dL (32.4-35.8); MEAN CORPUSCULAR VOLUME 89.2 fL (80-100); MEAN PLATELET VOLUME 8.1 fL (7.4-10.4); PLATELET COUNT 643 x10^3/uL (130-400); RED BLOOD COUNT 3.04 x10^6/uL (3.82-5.3); RED CELL DISTRIBUTION WIDTH 15.8 % (9.6-15.2)
[2018-01-11 05:52] LABS: BASOPHILS # (AUTO) 0.09 x10^3/uL (0-0.1); BASOPHILS % (AUTO) 1 % (0-1); EOSINOPHILS # (AUTO) 1.01 x10^3/uL (0-0.4); EOSINOPHILS % (AUTO) 8 % (1-7); LYMPHOCYTES # (AUTO) 1.35 x10^3/uL (1-3.4); LYMPHOCYTES % (AUTO) 10 % (22-44); MD SCAN; MONOCYTES # (AUTO) 1.92 x10^3/uL (0.2-0.8); MONOCYTES % (AUTO) 15 % (2-9); NEUTROPHILS # (AUTO) 8.73 x10^3/uL (1.8-6.8); NEUTROPHILS % (AUTO) 67 % (42-75)
[2018-01-11] MEDS: HYDROcodone/APAP 5/325 TABLET PO PRN ×2 (06:21→19:34)
[2018-01-11] MEDS: INSULIN LISPRO 100 UNITS/ML, PEN SQ-INSULIN SCH ×4 (07:00→21:00)
[2018-01-11 08:31] VITALS: BP 133/80
[2018-01-11] MEDS: POTASSIUM CHLORIDE 20 MEQ TAB.ER.PRT PO SCH (08:39)
[2018-01-11] MEDS: CIPROFLOXACIN 500 MG TABLET PO SCH ×2 (08:40→19:34)
[2018-01-11] MEDS: FAMOTIDINE 20 MG TABLET PO SCH ×2 (08:40→19:34)
[2018-01-11] MEDS: MORPHINE SULFATE 4 MG/ML, 1ML IVPush PRN (08:42)
[2018-01-11 12:39] VITALS: BP 149/82
[2018-01-11] MEDS ORDERED: WARFARIN 5 MG TABLET PO-COUM ONE (18:00)
[2018-01-11 18:33] VITALS: BP 157/83
[2018-01-12] MEDS: SODIUM CHLORIDE 0.45% 1,000 ML IV SCH (00:16)
[2018-01-12 00:18] VITALS: BP 102/67
[2018-01-12] MEDS: VANCOMYCIN 50 MG/ML ORAL SUSP PO SCH ×4 (03:34→22:02)
[2018-01-12 04:35] LABS: MEAN CORPUSCULAR HEMOGLOBIN 28.7 pg (27.0-34.8); MEAN CORPUSCULAR VOLUME 89.7 fL (80-100); MEAN PLATELET VOLUME 8.2 fL (7.4-10.4); PLATELET COUNT 735 x10^3/uL (130-400); RED BLOOD COUNT 3.27 x10^6/uL (3.82-5.3); RED CELL DISTRIBUTION WIDTH 15.7 % (9.6-15.2)
[2018-01-12 04:39] LABS: INTERNATIONAL NORMALIZED RATIO 2.89 (0.93-1.1); PROTHROMBIN TIME 29.4 Seconds (9.6-11.5)
[2018-01-12 04:43] LABS: ANION GAP 7 mmol/L (5-15); CALCIUM 8.5 mg/dL (8.5-10.1); CHLORIDE 103 mmol/L (98-107); CREATININE 0.85 mg/dL (0.55-1.02)
[2018-01-12 05:20] LABS: BASOPHILS # (AUTO) 0.06 x10^3/uL (0-0.1); BASOPHILS % (AUTO) 0 % (0-1); EOSINOPHILS # (AUTO) 0.82 x10^3/uL (0-0.4); EOSINOPHILS % (AUTO) 6 % (1-7); LYMPHOCYTES # (AUTO) 1.74 x10^3/uL (1-3.4); LYMPHOCYTES % (AUTO) 13 % (22-44); MD SCAN; MONOCYTES # (AUTO) 1.93 x10^3/uL (0.2-0.8); MONOCYTES % (AUTO) 14 % (2-9); NEUTROPHILS # (AUTO) 8.85 x10^3/uL (1.8-6.8); NEUTROPHILS % (AUTO) 66 % (42-75)
[2018-01-12] MEDS: INSULIN LISPRO 100 UNITS/ML, PEN SQ-INSULIN SCH ×4 (07:00→21:01)
[2018-01-12] MEDS: CIPROFLOXACIN 500 MG TABLET PO SCH ×2 (07:56→20:57)
[2018-01-12] MEDS: FAMOTIDINE 20 MG TABLET PO SCH ×2 (07:56→20:57)
[2018-01-12] MEDS: SODIUM CHLORIDE FLUSH 10ML SYR IVF SCH ×2 (07:56→20:59)
[2018-01-12 08:11] VITALS: BP 118/72
[2018-01-12 12:37] VITALS: BP 118/74
[2018-01-12 18:57] VITALS: BP 124/83
[2018-01-12] MEDS: HYDROcodone/APAP 5/325 TABLET PO PRN (19:45)
[2018-01-12] MEDS ORDERED: WARFARIN 5 MG TABLET PO-COUM SCH (21:00)
[2018-01-13 02:00] VITALS: BP 93/60
[2018-01-13] MEDS: VANCOMYCIN 50 MG/ML ORAL SUSP PO SCH ×3 (04:04→18:32)
[2018-01-13 05:10] LABS: MEAN CORPUSCULAR HEMOGLOBIN 30.1 pg (27.0-34.8); MEAN CORPUSCULAR HGB CONC 33.4 g/dL (32.4-35.8); MEAN PLATELET VOLUME 8.1 fL (7.4-10.4); PLATELET COUNT 787 x10^3/uL (130-400); RED BLOOD COUNT 3.05 x10^6/uL (3.82-5.3); RED CELL DISTRIBUTION WIDTH 15.2 % (9.6-15.2)
[2018-01-13 05:11] LABS: INTERNATIONAL NORMALIZED RATIO 3.46 (0.93-1.1); PROTHROMBIN TIME 35.1 Seconds (9.6-11.5)
[2018-01-13 05:21] LABS: ANION GAP 8 mmol/L (5-15); CHLORIDE 103 mmol/L (98-107)
[2018-01-13 05:23] LABS: CREATININE 0.85 mg/dL (0.55-1.02)
[2018-01-13 05:46] LABS: BASOPHILS # (AUTO) 0.03 x10^3/uL (0-0.1); BASOPHILS % (AUTO) 0 % (0-1); EOSINOPHILS # (AUTO) 0.83 x10^3/uL (0-0.4); EOSINOPHILS % (AUTO) 7 % (1-7); LYMPHOCYTES # (AUTO) 1.37 x10^3/uL (1-3.4); LYMPHOCYTES % (AUTO) 12 % (22-44); MD SCAN; MONOCYTES # (AUTO) 1.96 x10^3/uL (0.2-0.8); MONOCYTES % (AUTO) 17 % (2-9); NEUTROPHILS # (AUTO) 7.38 x10^3/uL (1.8-6.8); NEUTROPHILS % (AUTO) 64 % (42-75)
[2018-01-13] MEDS: INSULIN LISPRO 100 UNITS/ML, PEN SQ-INSULIN SCH ×4 (07:56→21:58)
[2018-01-13 08:25] VITALS: BP 113/70
[2018-01-13] MEDS: HYDROcodone/APAP 5/325 TABLET PO PRN ×2 (11:38→18:35)
[2018-01-13] MEDS: CIPROFLOXACIN 500 MG TABLET PO SCH ×2 (11:38→21:58)
[2018-01-13] MEDS: FAMOTIDINE 20 MG TABLET PO SCH ×2 (11:38→21:57)
[2018-01-13] MEDS: SODIUM CHLORIDE FLUSH 10ML SYR IVF SCH ×2 (11:39→21:58)
[2018-01-13 19:10] VITALS: BP 119/76
[2018-01-14 00:52] VITALS: BP 123/53
[2018-01-14] MEDS: VANCOMYCIN 50 MG/ML ORAL SUSP PO SCH ×4 (00:54→18:37)
[2018-01-14] MEDS: HYDROcodone/APAP 5/325 TABLET PO PRN ×4 (00:54→18:37)
[2018-01-14 04:50] LABS: INTERNATIONAL NORMALIZED RATIO 2.22 (0.93-1.1); PROTHROMBIN TIME 22.7 Seconds (9.6-11.5)
[2018-01-14 04:51] LABS: MEAN CORPUSCULAR HGB CONC 31.5 g/dL (32.4-35.8); MEAN PLATELET VOLUME 7.9 fL (7.4-10.4); PLATELET COUNT 827 x10^3/uL (130-400); RED BLOOD COUNT 3.09 x10^6/uL (3.82-5.3)
[2018-01-14 04:57] LABS: CALCIUM 8.7 mg/dL (8.5-10.1); CHLORIDE 103 mmol/L (98-107)
[2018-01-14 05:00] LABS: ANION GAP 7 mmol/L (5-15); CREATININE 0.87 mg/dL (0.55-1.02)
[2018-01-14 05:39] LABS: BASOPHILS # (AUTO) 0.11 x10^3/uL (0-0.1); BASOPHILS % (AUTO) 1 % (0-1); EOSINOPHILS # (AUTO) 0.92 x10^3/uL (0-0.4); EOSINOPHILS % (AUTO) 9 % (1-7); LYMPHOCYTES # (AUTO) 1.71 x10^3/uL (1-3.4); LYMPHOCYTES % (AUTO) 16 % (22-44); MD SCAN; MONOCYTES # (AUTO) 1.64 x10^3/uL (0.2-0.8); MONOCYTES % (AUTO) 16 % (2-9); NEUTROPHILS # (AUTO) 6.13 x10^3/uL (1.8-6.8); NEUTROPHILS % (AUTO) 58 % (42-75)
[2018-01-14 08:06] VITALS: BP 115/68
[2018-01-14] MEDS: CIPROFLOXACIN 500 MG TABLET PO SCH ×2 (10:04→21:09)
[2018-01-14] MEDS: FAMOTIDINE 20 MG TABLET PO SCH ×2 (10:04→21:09)
[2018-01-14] MEDS: SODIUM CHLORIDE FLUSH 10ML SYR IVF SCH ×2 (10:08→21:09)
[2018-01-14] MEDS: INSULIN LISPRO 100 UNITS/ML, PEN SQ-INSULIN SCH ×4 (11:00→21:10)
[2018-01-14 16:07] VITALS: BP 138/78
[2018-01-14 19:01] VITALS: BP 126/73
[2018-01-14] MEDS: IBUPROFEN 200 MG TABLET PO PRN (21:10)
[2018-01-15] MEDS: VANCOMYCIN 50 MG/ML ORAL SUSP PO SCH ×3 (00:49→11:08)
[2018-01-15] MEDS: HYDROcodone/APAP 5/325 TABLET PO PRN ×2 (00:49→06:24)
[2018-01-15 00:53] VITALS: BP 100/64
[2018-01-15 04:41] LABS: MEAN CORPUSCULAR HEMOGLOBIN 29.4 pg (27.0-34.8); MEAN CORPUSCULAR HGB CONC 32.9 g/dL (32.4-35.8); MEAN CORPUSCULAR VOLUME 89.2 fL (80-100); MEAN PLATELET VOLUME 7.8 fL (7.4-10.4); PLATELET COUNT 856 x10^3/uL (130-400); RED BLOOD COUNT 3.03 x10^6/uL (3.82-5.3); RED CELL DISTRIBUTION WIDTH 15.9 % (9.6-15.2)
[2018-01-15 04:48] LABS: INTERNATIONAL NORMALIZED RATIO 1.37 (0.93-1.1); PROTHROMBIN TIME 14.2 Seconds (9.6-11.5)
[2018-01-15 04:51] LABS: ANION GAP 6 mmol/L (5-15); CALCIUM 8.9 mg/dL (8.5-10.1); CHLORIDE 102 mmol/L (98-107)
[2018-01-15 04:53] LABS: CREATININE 0.86 mg/dL (0.55-1.02)
[2018-01-15 05:15] LABS: BASOPHILS # (AUTO) 0.13 x10^3/uL (0-0.1); BASOPHILS % (AUTO) 1 % (0-1); EOSINOPHILS # (AUTO) 1.01 x10^3/uL (0-0.4); EOSINOPHILS % (AUTO) 11 % (1-7); LYMPHOCYTES # (AUTO) 1.63 x10^3/uL (1-3.4); LYMPHOCYTES % (AUTO) 18 % (22-44); MD SCAN; MONOCYTES # (AUTO) 1.53 x10^3/uL (0.2-0.8); MONOCYTES % (AUTO) 17 % (2-9); NEUTROPHILS # (AUTO) 4.89 x10^3/uL (1.8-6.8); NEUTROPHILS % (AUTO) 53 % (42-75)
[2018-01-15 06:55] VITALS: BP 101/66
[2018-01-15] MEDS: INSULIN LISPRO 100 UNITS/ML, PEN SQ-INSULIN SCH ×2 (07:00→11:00)
[2018-01-15] MEDS ORDERED: ENOXAPARIN 40 MG/0.4 ML SQ ONE (09:30)
[2018-01-15] MEDS: CIPROFLOXACIN 500 MG TABLET PO SCH (11:08)
[2018-01-15] MEDS: FAMOTIDINE 20 MG TABLET PO SCH (11:10)
[2018-01-15] MEDS ORDERED: ONDA4TAB7 PO (13:45)
[2018-01-15] MEDS ORDERED: CIPR500T87 PO (13:46)
[2018-01-15] MEDS ORDERED: VANC125C2 PO (13:49)
[2018-01-15] MEDS ORDERED: HYDR-3237 PO (13:50)
== END 2018-01-15 15:22 | disposition home health service (06) | DRG 736 ==
LOC: ORIP 07:54 → MERGE 07:54 → CCU 21:28 → 3NW 01-03 12:15
PROVIDERS: ADMIT Specialist; ATTEND Specialist
PROC: 0UT70ZZ Resection of Bilateral Fallopian Tubes, Open Approach (ICD-10-PCS; 2017-12-31)
PROC: 0UT20ZZ Resection of Bilateral Ovaries, Open Approach (ICD-10-PCS; 2017-12-31)
PROC: 0DBP7ZZ Excision of Rectum, Via Natural or Artificial Opening (ICD-10-PCS; 2017-12-31)
PROC: 0UT Female Reproductive System, Resection (ICD-10-PCS; 2017-12-31)
PROC: 0DTN0ZZ Resection of Sigmoid Colon, Open Approach (ICD-10-PCS; 2017-12-31)
PROC: 0DBU0ZZ Excision of Omentum, Open Approach (ICD-10-PCS; 2017-12-31)
PROC: 0BBT0ZZ Excision of Diaphragm, Open Approach (ICD-10-PCS; 2017-12-31)
PROC: 0DTJ0ZZ Resection of Appendix, Open Approach (ICD-10-PCS; 2017-12-31)
PROC: 07BD0ZZ Excision of Aortic Lymphatic, Open Approach (ICD-10-PCS; 2017-12-31)
PROC: 0BQT0ZZ Repair Diaphragm, Open Approach (ICD-10-PCS; 2017-12-31)
PROC: 30233N1 Transfusion of Nonautologous Red Blood Cells into Peripheral Vein, Percutaneous Approach (ICD-10-PCS; 2017-12-31)
PROC: 07TP0ZZ Resection of Spleen, Open Approach (ICD-10-PCS; principal; 2017-12-31 09:30)
PROC: 0W993ZZ Drainage of Right Pleural Cavity, Percutaneous Approach (ICD-10-PCS; 2018-01-15)
DX: C56.9 Malignant neoplasm of unspecified ovary (principal); E43 Unspecified severe protein-calorie malnutrition; J90 Pleural effusion, not elsewhere classified; K56.7 Ileus, unspecified; J98.11 Atelectasis; N39.0 Urinary tract infection, site not specified; A04.72 Enterocolitis due to Clostridium difficile, not specified as recurrent; Z99.81 Dependence on supplemental oxygen; D64.9 Anemia, unspecified; E11.9 Type 2 diabetes mellitus without complications; E66.9 Obesity, unspecified; K43.2 Incisional hernia without obstruction or gangrene; N28.9 Disorder of kidney and ureter, unspecified; Z68.38 Body mass index [BMI] 38.0-38.9, adult; E78.5 Hyperlipidemia, unspecified; E87.6 Hypokalemia; Z79.01 Long term (current) use of anticoagulants; Z86.711 Personal history of pulmonary embolism; Z68.34 Body mass index [BMI] 34.0-34.9, adult
CPT/HCPCS: 32555; 36415; 71045; 71046; 74018; 80048; 80053; 81001; 82040; 82962; 83605; 83735; 85014; 85018; 85025; 85520; 85610; 85730; 86304; 86850; 86900; 86923; 87040; 87070; 87077; 87081; 87086; 87186; 87205; 87324; 87493; 88112; 88304; 88305; 88307; 90648; 90686; 90714; 90734; 93005; C1729; J0690; J1100; J1170; J1644; J1650; J1885; J2250; J2270; J2543; J2704; J2710; J3010; J3370; J3480; J3490; P9045; P9047; Q0162; C1765; G0009; J1815; J1940; J7030; J7040; J7120; P9016; Q0163; S0028

== ENCOUNTER → 2018-01-30 | Outpatient (CLI) | payer MEDICARE ==
[~2018-01-30] MED LIST changes: +CIPR500T87 PO; +HYDR-3237 PO; +ONDA4TAB7 PO; +VANC125C2 PO
== END | disposition home or self-care (01) ==
LOC: CFH 13:34
PROVIDERS: ATTEND Specialist
DX: J90 Pleural effusion, not elsewhere classified (principal); C78.2 Secondary malignant neoplasm of pleura
CPT/HCPCS: 71046

== ENCOUNTER 2018-02-25 06:54 | Day surgery (SDC) | payer MEDICARE ==
[~2018-02-25] VITALS: Ht 170.2 cm; Wt 90.8 kg
[~2018-02-25 06:54] MED LIST changes: +BUPIVACAINE/PF-EPI 0.25% 1:200K ONE; +HEPARIN 1,000 UNITS/ML, 10ML ONE; -METF500T4 PO; +METF500T5 PO
[2018-02-25] MEDS ORDERED: LACTATED RINGERS 1,000 ML IV SCH (07:50)
[2018-02-25] MEDS ORDERED: ACETAMINOPHEN 500 MG TABLET PO ONE (08:00)
[2018-02-25] MEDS ORDERED: GABAPENTIN 300 MG CAPSULE PO ONE (08:00)
[2018-02-25] MEDS ORDERED: SCOPOLAMINE PATCH, 1.5MG PATCH.TD72 TD ONE (08:00)
[2018-02-25 08:05] VITALS: BP 126/82
[2018-02-25 08:13] VITALS: BP 126/82
[2018-02-25] MEDS ORDERED: WARF3TAB52 PO (08:25)
[2018-02-25] MEDS ORDERED: FENTANYL PF 100 MCG/2ML ONE (09:39)
[2018-02-25] MEDS ORDERED: MIDAZOLAM 1 MG/ML, 2ML ONE (09:40)
[2018-02-25] MEDS ORDERED: ONDANSETRON 2MG/ML, 2ML ONE (10:14)
[2018-02-25] MEDS ORDERED: PROPOFOL 10 MG/ML, 20ML ONE (10:14)
[2018-02-25] MEDS ORDERED: SUCCINYLCHOLINE 20 MG/ML, 10ML ONE (10:14)
[2018-02-25] MEDS ORDERED: DEXAMETHASONE 4 MG/ML, 1ML ONE (10:14)
[2018-02-25] MEDS ORDERED: ROCURONIUM 10MG/ML,5ML ONE (10:14)
[2018-02-25] MEDS ORDERED: PROMETHAZINE 25 MG/ML, 1ML IV PRN (11:00)
[2018-02-25] MEDS ORDERED: LABETALOL 5MG/ML, 20ML IV PRN (11:00)
[2018-02-25] MEDS ORDERED: METOCLOPRAMIDE 5 MG/ML, 2ML IV PRN (11:00)
[2018-02-25] MEDS ORDERED: OXYcodone 5 MG/5 ML ORAL.SOL UDC PO PRN (11:00)
[2018-02-25] MEDS ORDERED: FENTANYL PF 100 MCG/2ML IV PRN (11:00)
[2018-02-25] MEDS ORDERED: hydrALAzine 20 MG/ML, 1ML IV PRN (11:00)
[2018-02-25] MEDS ORDERED: MEPERIDINE/PF 25MG/0.5ML IVPush PRN (11:00)
[2018-02-25] MEDS ORDERED: ONDANSETRON 2MG/ML, 2ML IVPush PRN (11:00)
[2018-02-25] MEDS ORDERED: KETOROLAC 30 MG/1 ML IV PRN (11:00)
[2018-02-25] MEDS ORDERED: HYDROmorphone 1 MG/ML, 1ML IV PRN (11:00)
[2018-02-25] MEDS ORDERED: ALBUTEROL SULFATE 2.5 MG/3 ML NPPB PRN (11:00)
[2018-02-25] MEDS ORDERED: VISIPAQUE 270 MG/ML, 50ML BOTTLE ONE (11:38)
[2018-03-05] MEDS ORDERED: VITA1TAB68 PO (08:37)
[2018-03-12] MEDS ORDERED: ZOLP-413 PO (08:35)
== END 2018-02-25 13:45 ==
LOC: OUT 06:54
PROVIDERS: ATTEND Specialist
DX: Z45.2 Encounter for adjustment and management of vascular access device (principal); E11.40 Type 2 diabetes mellitus with diabetic neuropathy, unspecified; E78.2 Mixed hyperlipidemia; C56.9 Malignant neoplasm of unspecified ovary; Z98.890 Other specified postprocedural states
CPT/HCPCS: 36561; 71045; 76536; 77001; 82962; C1788; J0330; J1100; J1644; J2250; J2405; J2704; J3010; J7120; Q9966; 76000

== ENCOUNTER → 2018-03-13 | Outpatient (CLI) | payer MEDICARE ==
[~2018-03-13] MED LIST changes: -BUPIVACAINE/PF-EPI 0.25% 1:200K ONE; -HEPARIN 1,000 UNITS/ML, 10ML ONE; +OMNIPAQUE 350 MG/ML, 100ML BOTTLE ONE; +VITA1TAB68 PO; +WARF3TAB52 PO; +ZOLP-413 PO
== END | disposition home or self-care (01) ==
LOC: CFH 08:55
PROVIDERS: ATTEND Specialist
DX: C78.7 Secondary malignant neoplasm of liver and intrahepatic bile duct (principal); C56.9 Malignant neoplasm of unspecified ovary; J90 Pleural effusion, not elsewhere classified; J98.11 Atelectasis; R19.00 Intra-abdominal and pelvic swelling, mass and lump, unspecified site; R59.1 Generalized enlarged lymph nodes; E11.9 Type 2 diabetes mellitus without complications; E78.5 Hyperlipidemia, unspecified
CPT/HCPCS: 71260; 74177; Q9967

== ENCOUNTER → 2018-04-02 | Outpatient (CLI) | payer MEDICARE ==
[~2018-04-02] MED LIST changes: -OMNIPAQUE 350 MG/ML, 100ML BOTTLE ONE
== END | disposition home or self-care (01) ==
LOC: RAD 07:19
PROVIDERS: ATTEND Specialist
DX: Z02.9 Encounter for administrative examinations, unspecified (principal)

== ENCOUNTER → 2018-08-08 | Outpatient (CLI) | payer MEDICARE ==
[~2018-08-08] MED LIST changes: +LIDOCAINE-MPF 1%, 5ML ONE; +METF500T17 PO; -METF500T5 PO; +WARF2.5T32 PO; -WARF2.5T73 PO
== END | disposition home or self-care (01) ==
LOC: RAD 11:52
PROVIDERS: ATTEND Specialist
DX: C38.4 Malignant neoplasm of pleura (principal); Z98.890 Other specified postprocedural states
CPT/HCPCS: 32555; 88112; 88305

== ENCOUNTER → 2018-09-06 | Outpatient (CLI) | payer MEDICARE ==
[~2018-09-06] MED LIST changes: -LIDOCAINE-MPF 1%, 5ML ONE
== END | disposition home or self-care (01) ==
LOC: PETCFH 08:46
PROVIDERS: ATTEND Specialist
DX: C78.2 Secondary malignant neoplasm of pleura (principal); C56.9 Malignant neoplasm of unspecified ovary; J90 Pleural effusion, not elsewhere classified
CPT/HCPCS: 71046; 78472; A9560

== ENCOUNTER 2019-01-06 05:34 | Inpatient (IN) | payer MEDICARE ==
[~2019-01-06] VITALS: Ht 170.2 cm; Wt 94.4 kg
[~2019-01-06 05:34] MED LIST changes: +OMEP20TA62 PO; -VANC125C2 PO; +VANC125C3 PO
[2019-01-06] MEDS ORDERED: ONDANSETRON 2MG/ML, 2ML IVPush ONE (06:00)
[2019-01-06] MEDS ORDERED: SODIUM CHLORIDE FLUSH 10ML SYR IVF ONE (06:00)
--- NOTE | 2019-01-06 06:10 | NUR ---
pt in gown in [facility]. DR CONSTANTINO AT . PT EDUCATED ON ER PROCESS AND POC AND VERBALIZES UNDERSTANDING. CALL LIGHT IS WITHIN REACH. PT ATTACHED TO VS MACHINES. VSS. PT CHEMO PORT ACCESSED USING STERILE PROCEDURES. AWAITING NEW ORDERS AT THIS TIME.
[2019-01-06] MEDS ORDERED: HYDROmorphone 2 MG/ML, 1ML ONE ×2 (06:14→08:08)
[2019-01-06] MEDS ORDERED: ONDANSETRON 2MG/ML, 2ML ONE (06:14)
--- NOTE | 2019-01-06 06:26 | NUR ---
PT MEDICATED PER MAR FOR NAUSEA AND PAIN. LAB AT BS TO DRAW LABS AND [facility]
[2019-01-06] MEDS: HYDROmorphone 2 MG/ML, 1ML IVPush PRN ×2 (06:33→08:11)
[2019-01-06 06:55] LABS: BASOPHILS # (AUTO) 0.05 x10^3/uL (0-0.1); BASOPHILS % (AUTO) 1 % (0-1); EOSINOPHILS # (AUTO) 0.06 x10^3/uL (0-0.4); EOSINOPHILS % (AUTO) 1 % (1-7); LYMPHOCYTES # (AUTO) 2.13 x10^3/uL (1-3.4); LYMPHOCYTES % (AUTO) 28 % (22-44); MD NO; MEAN CORPUSCULAR HEMOGLOBIN 30.8 pg (27.0-34.8); MEAN CORPUSCULAR HGB CONC 31.8 g/dL (32.4-35.8); MONOCYTES # (AUTO) 0.82 x10^3/uL (0.2-0.8); MONOCYTES % (AUTO) 11 % (2-9); NEUTROPHILS # (AUTO) 4.55 x10^3/uL (1.8-6.8); NEUTROPHILS % (AUTO) 60 % (42-75); PLATELET COUNT 360 x10^3/uL (130-400); RED BLOOD COUNT 4.65 x10^6/uL (3.82-5.3); RED CELL DISTRIBUTION WIDTH 19.8 % (9.6-15.2)
--- NOTE | 2019-01-06 07:02 | NUR ---
REPORT OF PT TO [facility]. ALL QUESTIONS ANSWERED
[2019-01-06 07:07] LABS: ALANINE AMINOTRANSFERASE 12 U/L (12-78); ALBUMIN 2.2 g/dL (3.4-5.0); ANION GAP 7 mmol/L (5-15); CHLORIDE 103 mmol/L (98-107); CREATININE 1.17 mg/dL (0.55-1.02)
[2019-01-06 07:10] LABS: INTERNATIONAL NORMALIZED RATIO 4.44 (0.93-1.1)
[2019-01-06 07:11] LABS: ALKALINE PHOSPHATASE 89 U/L (45-117); BILIRUBIN,TOTAL 0.2 mg/dL (0.2-1.0); TOTAL PROTEIN 6.5 g/dL (6.4-8.2)
[2019-01-06] MEDS ORDERED: OMNIPAQUE 350 MG/ML, 100ML BOTTLE ONE (08:36)
--- NOTE | 2019-01-06 09:45 | NUR ---
GARY ATTEMPTS TO COLLECT URINE. PT DENIES ABILITY TO PRODUCE
[2019-01-06 10:55] LABS: MICROSCOPIC NOT IND
[2019-01-06 11:04] LABS: CULTURE INDICATED? NO
[2019-01-06] MEDS ORDERED: hydrALAzine 20 MG/ML, 1ML IVPush PRN (12:30)
[2019-01-06] MEDS ORDERED: GABAPENTIN 300 MG CAPSULE PO PRN (12:30)
[2019-01-06] MEDS ORDERED: HYDROcodone/APAP 5/325 TABLET PO PRN (12:30)
[2019-01-06] MEDS ORDERED: SODIUM CHLORIDE FLUSH 10ML SYR IVF PRN (12:30)
[2019-01-06] MEDS ORDERED: morphine SULFATE 10 MG/ML, 1ML IVPush PRN (12:30)
[2019-01-06] MEDS ORDERED: ACETAMINOPHEN 325 MG TABLET PO PRN (12:30)
[2019-01-06] MEDS ORDERED: ONDANSETRON 2MG/ML, 2ML IVPush PRN (12:30)
[2019-01-06 13:37] VITALS: BP 114/76
[2019-01-06] MEDS: HYDROmorphone 2 MG/ML, 1ML IV PRN (16:41)
[2019-01-06] MEDS: D5%-0.45NACL+KCL 20MEQ 1,000 ML IV SCH (16:42)
[2019-01-06] MEDS: PROMETHAZINE 25 MG/ML, 1ML IM PRN (17:41)
[2019-01-06 20:33] VITALS: BP 119/74
[2019-01-06] MEDS: SIMVASTATIN 40 MG TABLET PO SCH (21:00)
[2019-01-06] MEDS: ZOLPIDEM 5MG TABLET PO SCH (21:00)
[2019-01-07 02:55] VITALS: BP 106/71
[2019-01-07 05:45] LABS: PROTHROMBIN TIME 49.5 Seconds (9.6-11.5)
[2019-01-07 05:46] LABS: MEAN CORPUSCULAR HEMOGLOBIN 30.9 pg (27.0-34.8); MEAN CORPUSCULAR HGB CONC 31.8 g/dL (32.4-35.8); MEAN CORPUSCULAR VOLUME 97.4 fL (80-100); PLATELET COUNT 331 x10^3/uL (130-400); RED BLOOD COUNT 4.24 x10^6/uL (3.82-5.3); RED CELL DISTRIBUTION WIDTH 20.7 % (9.6-15.2)
[2019-01-07 05:48] LABS: INTERNATIONAL NORMALIZED RATIO 5.02 (0.93-1.1)
[2019-01-07 05:49] LABS: ANION GAP 5 mmol/L (5-15); CALCIUM 8.8 mg/dL (8.5-10.1); CHLORIDE 105 mmol/L (98-107); CREATININE 1.04 mg/dL (0.55-1.02)
[2019-01-07] MEDS: OMEPRAZOLE 20 MG CAPSULE.DR PO SCH (06:00)
[2019-01-07 06:09] LABS: BASOPHILS # (AUTO) 0.06 x10^3/uL (0-0.1); BASOPHILS % (AUTO) 1 % (0-1); EOSINOPHILS # (AUTO) 0.25 x10^3/uL (0-0.4); EOSINOPHILS % (AUTO) 5 % (1-7); LYMPHOCYTES # (AUTO) 2.16 x10^3/uL (1-3.4); LYMPHOCYTES % (AUTO) 41 % (22-44); MD SCAN; MONOCYTES # (AUTO) 0.61 x10^3/uL (0.2-0.8); MONOCYTES % (AUTO) 12 % (2-9); NEUTROPHILS # (AUTO) 2.14 x10^3/uL (1.8-6.8); NEUTROPHILS % (AUTO) 41 % (42-75)
[2019-01-07] MEDS: D5%-0.45NACL+KCL 20MEQ 1,000 ML IV SCH ×2 (06:12→20:23)
[2019-01-07 08:00] VITALS: BP 110/76
[2019-01-07 14:01] VITALS: BP 114/79
[2019-01-07 19:58] VITALS: BP 116/73
[2019-01-07] MEDS: SIMVASTATIN 40 MG TABLET PO SCH (21:00)
[2019-01-07] MEDS: ZOLPIDEM 5MG TABLET PO SCH (21:00)
[2019-01-08 01:04] VITALS: BP 115/76
[2019-01-08] MEDS: OMEPRAZOLE 20 MG CAPSULE.DR PO SCH (06:33)
[2019-01-08 06:43] VITALS: BP 104/70
[2019-01-08] MEDS: D5%-0.45NACL+KCL 20MEQ 1,000 ML IV SCH ×2 (08:49→22:16)
[2019-01-08 13:22] VITALS: BP 141/84
[2019-01-08 20:15] VITALS: BP 146/77
[2019-01-08] MEDS: SIMVASTATIN 40 MG TABLET PO SCH (21:00)
[2019-01-08] MEDS: ZOLPIDEM 5MG TABLET PO SCH (21:00)
[2019-01-09 00:58] VITALS: BP 106/68
[2019-01-09] MEDS: PROMETHAZINE 25 MG/ML, 1ML IM PRN (06:21)
[2019-01-09] MEDS: OMEPRAZOLE 20 MG CAPSULE.DR PO SCH (06:21)
[2019-01-09 07:16] VITALS: BP 118/76
[2019-01-09] MEDS: HYDROmorphone 2 MG/ML, 1ML IV PRN ×2 (08:43→12:32)
[2019-01-09] MEDS: D5%-0.45NACL+KCL 20MEQ 1,000 ML IV SCH (10:50)
[2019-01-09 13:42] VITALS: BP 126/78
[2019-01-09 16:57] LABS: INTERNATIONAL NORMALIZED RATIO 1.54 (0.93-1.1); PROTHROMBIN TIME 15.9 Seconds (9.6-11.5)
[2019-01-09] MEDS: ENOXAPARIN 100 MG/ML SQ SCH (18:24)
[2019-01-09 20:14] VITALS: BP 128/78
[2019-01-09] MEDS: ZOLPIDEM 5MG TABLET PO SCH (20:55)
[2019-01-09] MEDS: SIMVASTATIN 40 MG TABLET PO SCH (20:55)
[2019-01-10 02:02] VITALS: BP 107/70
[2019-01-10] MEDS: ENOXAPARIN 100 MG/ML SQ SCH (06:11)
[2019-01-10] MEDS: OMEPRAZOLE 20 MG CAPSULE.DR PO SCH (06:11)
[2019-01-10 07:50] VITALS: BP 126/80
== END 2019-01-10 10:35 | disposition hospice, inpatient (51) | DRG 374 ==
LOC: ED 06:04 → EDIP 12:17 → 3NW 13:32
PROVIDERS: ADMIT Hospitalist; ATTEND Hospitalist
DX: C78.6 Secondary malignant neoplasm of retroperitoneum and peritoneum (principal); N17.0 Acute kidney failure with tubular necrosis; C56.9 Malignant neoplasm of unspecified ovary; K56.601 Complete intestinal obstruction, unspecified as to cause; D68.69 Other thrombophilia; E44.0 Moderate protein-calorie malnutrition; J91.0 Malignant pleural effusion; J96.11 Chronic respiratory failure with hypoxia; C78.2 Secondary malignant neoplasm of pleura; C79.11 Secondary malignant neoplasm of bladder; R73.9 Hyperglycemia, unspecified; E78.5 Hyperlipidemia, unspecified; I10 Essential (primary) hypertension; Z51.5 Encounter for palliative care; Z66 Do not resuscitate; Z68.32 Body mass index [BMI] 32.0-32.9, adult; Z79.01 Long term (current) use of anticoagulants; Z85.43 Personal history of malignant neoplasm of ovary; Z86.711 Personal history of pulmonary embolism; Z90.81 Acquired absence of spleen
CPT/HCPCS: 36415; 71045; 74177; 80048; 80053; 81003; 83605; 83690; 83880; 85025; 85610; 85730; 87040; 93005; 96374; 96376; 99285; G0378; J1170; J1650; J2405; J2550; Q9967; J2270; J3480